=== PATIENT | female | born 1955 | race Caucasian/White ===

== ENCOUNTER 2018-01-28 05:36 | Day surgery (SDC) | payer OTHER ==
--- NOTE | 2018-01-16 06:26 | HP ---
PREOPERATIVE HISTORY AND PHYSICAL: DATE OF ADMISSION/SURGERY: 01/28/18 DATE OF OFFICE VISIT: 01/15/18 ATTENDING SURGEON: Sarika De La Cruz MD * (DICTATED BY NEHEMIAH DE LA O) CHIEF COMPLAINT: Left hip pain. HISTORY OF PRESENT ILLNESS: Rhoda is a 62-year-old female who presents to the clinic for left hip pain. She is referred to us by Dr. Lopez. She states that she has had pain in her hip for the past 4 years that has been worsening. She describes it as a deep aching pain in her groin that is worse with any movement. She has difficulty sleeping at night and has severe hip pain with sitting or standing too long. She received an ultrasound-guided injection and states that the Novocaine helped take away most of her pain, but when it wore off, the cortisone did not help. She also had an arthrogram and since the arthrogram, the hip pain has significantly increased. She is taking Aleve which is minimally helpful. She has done physical therapy without any relief. She does have a history of back and neck fusion. She denies any prior surgery to the left hip. She denies numbness, tingling, fever, chills, chest pain, shortness of breath, and is doing well otherwise. PAST MEDICAL HISTORY: Pancreatic cyst, fibromyalgia, hypertension, degenerative disk disease, and anxiety. PAST SURGICAL HISTORY: Back surgery x1, neck surgery x2, and eye surgery x3. The patient denies prior complications with anesthesia. MEDICATIONS: 1. Meloxicam 7.5 mg 1 by mouth twice daily. 2. Metoprolol 50 mg one half by mouth twice daily. 3. Estriol/testosterone 1 by mouth daily. 4. Esomeprazole 40 mg 1 by mouth every day. FAMILY HISTORY: Positive for heart disease. SOCIAL HISTORY: She is disabled. Former smoker. Reports occasional alcohol consumption. REVIEW OF SYSTEMS: A 14-point review of systems was reviewed with the patient. Positive for current complaint, otherwise negative. Denies fever, chills, chest pain, shortness of breath, history of DVT or PE, history of bleeding disorder. PHYSICAL EXAMINATION GENERAL: This is a 62-year-old well-developed, well-nourished female, in no acute distress. Alert and oriented x3. VITAL SIGNS: Height 63, weight 145. Blood pressure 120/78, respiratory rate 18. BMI 25.7. HEENT: Normocephalic, atraumatic. PERRLA. Throat clear. NECK: Supple. PULMONARY: Lungs clear to auscultation bilaterally. No wheezing, rhonchi, or rales. CARDIO: Regular rate and rhythm. S1 and S2. No murmurs, gallops, or rubs. No edema. ABDOMEN: Positive bowel sounds. Soft and nontender. MUSCULOSKELETAL: Left lower extremity: She walks with a severely antalgic gait. Hip is nontender to palpation. She has flexion of the hip to 45 degrees with pain. Pain with log roll and passive abduction. Significant pain with internal rotation and external rotation. Positive ADRIANA. Calves soft and nontender. +5/5 strength. Ankle dorsiflexion and plantarflexion. +2 DP pulse. Sensation intact to light touch distally. Right lower extremity, skin is intact. No warmth or erythema. Nontender to palpation. full range of motion. Neurovascularly intact. NEURO: Alert and oriented x3. Cranial nerves grossly intact. STUDIES: Multiple view x-rays and CT of the left hip revealed a cam deformity with mild osteoarthritis with joint space narrowing. MRI of the left hip revealed cam deformity, labral tear and bone marrow edema of the superolateral femoral head with joint effusion. 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 PLAN: Rhoda is a 62-year-old female who presents to the clinic for left hip pain due to femoroacetabular impingement and a labral tear. She has significant hip pain and may have an entrapped labral tear. She has failed conservative measures to include intra-articular injections and physical therapy. Therefore, Dr. De La Cruz recommended a left hip arthroscopic labral repair and osteoplasty. Postoperative recovery was discussed with the patient as well as risks of surgery to include risk of anesthesia, infection, bleeding, injury to blood vessels, nerves, surrounding structures, numbness, traction injury, and risk of DVT and PE. The patient has agreed to undergo the procedure. She is scheduled for a left hip arthroscopic labral repair and osteoplasty with Dr. De La Cruz on 01/28/18. Percocet will be used for postoperative pain management and naproxen to prevent heterotopic ossification. She will follow up 10 to 14 days postop and she will start therapy the day after surgery. NEHEMIAH DE LA O [id number]/[facility] #: [id number] [facility]ISION[facility]
[~2018-01-28 05:36] MED LIST: Buffered Lidocaine 0.9% SYRIN* 5 ML/SYR SYRINGE INTRADERM ONE; Ondansetron TAB* 4 MG PO ONE
[2018-01-28] MEDS ORDERED: DiMENhydriNATE IV* 50 MG/ML VIAL IV PUSH PRN (05:52)
[2018-01-28] MEDS ORDERED: Scopolamine 1.5 mg* PATCH TRANSDERM PRN (05:52)
[2018-01-28] MEDS ORDERED: PROCHLORPERAZINE INJ 5 MG/ML 2 ML VIAL IV PRN (05:52)
[2018-01-28] MEDS ORDERED: Dexamethasone TAB* 4 MG ONE (06:00)
[2018-01-28] MEDS ORDERED: Famotidine IV* 10 MG/ML 2 ML (20 mg) ONE (06:00)
[2018-01-28] MEDS ORDERED: Famotidine IV* 10 MG/ML 2 ML (20 mg) IV ONE (06:00)
[2018-01-28] MEDS ORDERED: Ondansetron ODT TAB* 4 MG ONE (06:00)
[2018-01-28] MEDS ORDERED: Dexamethasone TAB* 4 MG PO ONE (06:00)
[2018-01-28] MEDS ORDERED: ceFAZolin 2 GM PREMIX in ORs 2 GM/50 ML BAG IVPB ONE (06:01)
[2018-01-28] MEDS ORDERED: Buffered Lidocaine 0.9% SYRIN* 5 ML/SYR SYRINGE ONE (06:01)
[2018-01-28] MEDS ORDERED: KETAMINE HCL* 50 MG/ML 10 ML VIAL ONE (07:11)
[2018-01-28] MEDS ORDERED: Midazolam* 1 MG/ML 5 ML VIAL (5 MG) ONE (07:11)
[2018-01-28] MEDS ORDERED: fentaNYL* 50 MCG/ML 2 ML VIAL (100 MCG VIAL) ONE ×2 (07:11→09:32)
[2018-01-28] MEDS ORDERED: Atracurium* 10 MG/ML 10 ML VIAL ONE (07:11)
[2018-01-28] MEDS ORDERED: Ketorolac INJ* 30 MG/ML 1 ML VIAL ONE ×2 (07:14→08:35)
[2018-01-28] MEDS ORDERED: Ropivacaine* 2 MG/ML 20 ML VIAL (0.2%) ONE (07:15)
[2018-01-28] MEDS ORDERED: HYDROmorphone INJ1* 1 MG/ML SYRINGE ONE ×2 (07:59→09:32)
[2018-01-28] MEDS ORDERED: PROCHLORPERAZINE INJ 5 MG/ML 2 ML VIAL ONE (08:35)
[2018-01-28] MEDS ORDERED: Propofol* 10 MG/ML 20 ML BTL ONE (08:35)
[2018-01-28] MEDS ORDERED: Phenylephrine INJ* 10 MG/ML 1 ML VIAL (10 MG) ONE (08:35)
[2018-01-28] MEDS ORDERED: EPHEDrine (Pressors)* 50 MG/ML VIAL ONE (08:35)
[2018-01-28] MEDS ORDERED: Neostigmine Methylsulfate* 1 MG/ML 10 ML VIAL (1 mg/ml) ONE (08:57)
[2018-01-28] MEDS ORDERED: Glycopyrrolate IV* 0.2 MG/ML 1 ML VIAL ONE ×2 (08:57→09:13)
[2018-01-28] MEDS ORDERED: oxyCODONE/Acetamin 5/325 MG* TAB ONE ×2 (09:32→10:38)
[2018-01-28] MEDS: fentaNYL* 50 MCG/ML 2 ML VIAL (100 MCG VIAL) IV PRN ×3 (09:34→10:42)
[2018-01-28] MEDS: HYDROmorphone INJ1* 1 MG/ML SYRINGE IV PRN ×3 (09:36→10:43)
[2018-01-28] MEDS: oxyCODONE/Acetamin 5/325 MG* TAB PO PRN ×2 (09:37→10:42)
[2018-01-28] MEDS ORDERED: DiMENhydriNATE IV* 50 MG/ML VIAL ONE (10:39)
[2018-01-28] MEDS ORDERED: Scopolamine 1.5 mg* PATCH ONE (10:39)
[2018-01-28 11:01] VITALS: BP 137/76
--- NOTE | 2018-01-29 10:28 | OP ---
CC: PCP, Emerita Asencio MD * DATE OF OPERATION: 01/28/18 - [facility] DATE OF : 59 SURGEON: Sarika De La Cruz MD. ROVING WINDER: NEHEMIAH Lund. Tuber Machine Cutter was needed for the entirety of the case to help with positioning, retraction, and was utilized throughout all portions of the case. ANESTHESIOLOGIST: Dr. Landis. ANESTHESIA: General. PRE-OP DIAGNOSES: Left hip mild osteoarthritis with labral tear and loose body and pincer deformity. POST-OP DIAGNOSES: Left hip mild osteoarthritis with labral tear and loose body and pincer deformity. OPERATIVE PROCEDURE: 1. Left hip arthroscopy with labral debridement. 2. Removal of loose body x2 greater than 5 mm. 3. Cam osteoplasty. ESTIMATED BLOOD LOSS: Minimal. TRACTION TIME: 33 minutes. INDICATIONS: Rhoda Dominique is a 62-year-old female with significant left hip pain that began in 2013, but acutely got significantly worse. She initially responded to an injection in the past, then she had a second one. She had an arthrogram done for her hip, and since then, her pain is substantial, where she was unable to weightbear. She states the antiinflammatories failed. She has failed physical therapy. She is unable to walk. She has catching and locking of the hip. CT arthrogram demonstrated hip arthritis, but there was preserved joint space and her arthritis was not considered severe. She did have moderate cam and pincer deformity as well as labral tear. Risks and benefits of surgery were discussed at length and included, but are not limited to bleeding, infection, damage to nerves, vessels, surrounding structures, wound nonhealing, persistent pain, need for further surgery, scarring, stiffness, incomplete relief of symptoms, risk of anesthesia, as well as the risk of DVT and traction injuries, also heterotopic ossification. ARTHROSCOPIC FINDINGS: Traction provided good access to the joint. The cannula was replaced atraumatically and did not damage the labrum. There was evidence of a labral tear from the 10 o'clock to the 2 o'clock position with ossification that had subluxed into the joint. This is not deemed repairable. She did have small areas of grade 4 arthritis, with most of it grade 2 arthritis. She did have a loose body x2, about 5 mm, and the cartilage was delaminated where the typical wave sign would be. DESCRIPTION OF PROCEDURE: The patient was greeted in the preoperative area by the attending surgeon. The correct extremity was marked and consent was confirmed. The patient was brought back to the operating suite, where she was placed in supine position on the operating table. Then underwent general anesthesia with endotracheal intubation, after which she is appropriately positioned in the Leiva and Neph traction bed with large well padded perineal post. The nonoperative side was placed with the traction to balance the pelvis. The operative side was placed in dynamic leg zimmerman in gentle flexion, internal rotation, and neutral adduction. The left hip was then prepped and draped in usual sterile fashion beginning with chlorhexidine soap, scrub, and alcohol wipe. After a miniature surgical pause, gross traction was applied to the operative extremity. Under sterile condition, an 18-gauge spinal needle was introduced to break the acetabular seal. Once this was done, traction was applied to distract the hip by about 1.5 cm. This was appreciated using the C-arm traction. Traction was then taken down and the seal was broken. The hip was then finally prepped with the final prep of ChloraPrep. After appropriate surgical pause indicating site, side, procedure, and administration of antibiotics, traction was brought back up. First the anterior lateral peritrochanteric portal was accessed using a spinal needle, confirmed under fluoroscopy, then the portal was then made with 11 blade. Cannulas were then introduced atraumatically into the joint. Mid anterior portal was then made in similar fashion. Once the cannulas were placed, 70- degree scope was then used to confirm that none violated the labrum, although her labrum was subluxed into the joint. The pump was set to 40 mmHg for constant to stable pressure throughout the entirety of the case. At this point , attention was directed to the superior labrum which had torn. The Tioga blade was used to do capsulotomy, and the shaver and biters were then used to debride the labrum. There was evidence of ossification in the labrum. As this was being done, 2 loose bodies were identified. These were about 5 mm in length. There were numerous small chondral fragments as well that were removed. The remainder of the labrum was debrided back. Once the loose bodies were removed as well as the labrum, the traction was then taken down. Once this was confirmed arthroscopically as well as intraarticularly, attention was directed to the cam osteoplasty. Tioga blade was then used to tease the capsule. The cam was exposed. The electrocautery device was first used to melonie the provisions of the cam lesion. The preoperative templating was used as a guide for femoral neck osteoplasty. The bone quality was okay, but somewhat soft. There was a moderate size cam lesion. A 5-mm melvi was then used to do cam resection going superior to laterally, inferior to medially. This was used using a C-arm to try to remove as much to eliminate femoral sided impingement and cam lesion. Care was taken to prevent damage to external iliac vessels. At this point, meticulous hemostasis was obtained. Fluid was evacuated from the joint. Spinal needle was placed under arthroscopic visualization. Injectable Toradol and saline were placed into the joint. The wounds were copiously irrigated with sterile saline. Incisions were closed in layers with 2- 0 Vicryl and 3-0 nylon. Portals were injected with 0.25% Marcaine plain. Sterile dressings were applied as well as a Cryo/Cuff and MYA stocking. She was awoken from anesthesia and transferred to PACU in stable condition. POSTOPERATIVE PLAN: She will be partial weightbearing for 2 weeks with crutches , no hip flexion past 90 degrees. MYA stockings for 2 weeks. She will be discharged on pain medication as well as naproxen 500 mg p.o. b.i.d. for 30 days to prevent heterotopic ossification. DVT prophylaxis was considered, but deferred due to no previous personal or family history. I will see the patient back in 10 to 14 days and I will get repeat x-rays including a Alvarez and lateral of the hip. [id number]/[facility] #: [id number] [facility] CENTERBrian
[2018-01-31] MEDS ORDERED: Scopolamine PATCH Remove* 1 NOTE MISC PATCH OFF ONE (05:53)
== END 2018-01-28 11:17 | disposition home or self-care (01) ==
LOC: OR 05:36
PROVIDERS: ATTEND Orthopaedic Surgery
DX: M24.852 Other specific joint derangements of left hip, not elsewhere classified (principal); M25.852 Other specified joint disorders, left hip; M16.12 Unilateral primary osteoarthritis, left hip; M24.052 Loose body in left hip; I10 Essential (primary) hypertension; K21.9 Gastro-esophageal reflux disease without esophagitis
CPT/HCPCS: A9270-GY; J0690; J0780; J1170; J1240; J1885; J2250; J2704; J2710; J2795; J3010; J8540

== ENCOUNTER 2018-05-11 07:30 | Inpatient (IN) | payer OTHER ==
[2018-05-29] MEDS ORDERED: Buffered Lidocaine 1% SYRIN* 1 ML/SYRINGE INTRADERM ONE (13:29)
[2018-06-01] MEDS ORDERED: Lactated Ringers 1000 ML Bag* 1,000 ML IV SCH (06:00)
[2018-06-01] MEDS ORDERED: Dexamethasone IV* 4 MG/ML 1 ML (4 MG) IV SLOW PU ONE (06:00)
[2018-06-01] MEDS ORDERED: Acetaminophen IV 1GM/100ML * 1,000 MG/100 ML VIAL IVPB ONE (06:00)
[2018-06-01] MEDS ORDERED: celeCOXIB CAP* 200 MG PO ONE (06:00)
[2018-06-01] MEDS ORDERED: Gabapentin CAP(*) 300 MG PO ONE (06:00)
--- OUTSIDE RECORDS SUMMARY | 2018-06-01 07:28 | XMS REPORT | Continuity of Care Document ---
:1955 External Reference #:[id number] Author Name SURYA Carbajal Address [address] [place] [id number] Care Team Providers Name Role Phone Emerita Asencio MD Primary Care Physician Unavailable Payers Date Identification Numbers Payment Provider Subscriber Effective: 2016 Policy Number: [id number] [facility] Rhoda Dolan Expires: 2017 Group Number: [id number] [facility] PayID: [id number] [address] [place] [address] Effective: 2017 Policy Number: [id number] [facility] Rhoda Dolan Expires: 2018 Group Number: 100% [id number] [facility] PayID: [id number] [address] [place] [address] Advance Directives Description No Information Available Problems Date Description Provider Status Onset: 03/10/2018 Arthropathy of pelvis Sariak De La Cruz MD Active Onset: 03/10/2018 Articular cartilage disorder of Sarika De La Cruz MD Active the pelvic region and thigh Onset: 01/15/2018 Other specific joint derangements Sarika De La Cruz MD Active of left hip, not elsewhere classified Onset: 01/15/2018 Localized, primary osteoarthritis Sarika De La Cruz MD Active of the pelvic region and thigh Onset: 11/14/2017 Enthesopathy of hip region Juan Diego Flores M.D. Active Onset: 11/14/2017 Left side sciatica Juan Diego Flores M.D. Active Onset: 06/06/2015 Essential hypertension Dru Tate M.D., [facility], Active [facility] Onset: 06/06/2015 Chest pain Dru Tate M.D., [facility], Active [facility] Family History Date Family Member(s) Observation Comments General Coronary Artery Disease (CAD) 4/6 brothers and father with heart stents General OCD General Anxiety Father Back and Neck Problems Father Heart Disease Mother Hypertension Mother Cancer Siblings 6 Social History Type Date Description Comments Sex Unknown Marital Status 2 Times Lives With Occupation Disabled ETOH Use Denies alcohol use Tobacco Use Start: Unknown Patient has never smoked Recreational Drug Use Never Used Drugs Smoking Status Reviewed: 04/29/18 Patient has never smoked Exercise Type/Frequency Walks sporadically Allergies, Adverse Reactions, Alerts Date Description Reaction Status Severity Comments 06/06/2015 Morphine Active Rash 06/06/2015 Talwin Nx Active Rash 06/06/2015 Lorazepam Active Confusion 06/06/2015 Wellbutrin Active Hives 11/14/2017 Diclofenac red urine Active Medications Medication Date Status Form Strength Qnty SIG Indications Ordering Provider Gabapentin 04/09/ Active Capsules 300mg 30caps 1 by mouth M16.12 Juan Diego 2019 every night Sandra, at bedtime M.D. Metoprolol / Active Tablets 50mg 1/2 tab by Unknown Tartrate 0000 mouth twice a day(25mg) Estriol-Testos / Active Unknown terone 0000 Esomeprazole / Active Capsules 40mg 1 by mouth Unknown Magnesium 0000 DR every day Percocet 01/26/ Hx Tablets 5-325mg 30tabs 1 tabs by Sarika 2017 - mouth every , 03/10/ 4-6 hours 2019 as needed post op pain Naproxen 01/26/ Hx Tablets 500mg 60tabs 1 by mouth Sarika 2018 - twice a day Yaseen, 03/10/ x 30 days 2019 post op. do not take before surgery Meloxicam 01/09/ Hx Tablets 7.5mg 60tabs take 1 M25.452 Dirk 2017 - tablet by Jessica, 03/10/ mouth twice M.D. 2019 daily. Amlodipine / Hx Tablets 10mg 1/2 tab by Unknown Besylate 0000 - mouth every 11/03/ day 2018 Fentanyl / Hx Patches 100mcg/HR apply Unknown 0000 - 72HR 1patch 11/03/ topically 2018 every 72 hours Carisoprodol 00/ Hx Tablets 350mg 1 tab Unknown 0000 - tid/prn 2017 Oxycodone HCL 00/ Hx Tablets 5mg 1-2 by Unknown 0000 - mouth a 11/03/ day as 2018 needed Immunizations Description No Information Available Vital Signs Date Vital Result Comment 04/29/2018 10:54am Height 62.75 inches 5'2.75" Weight 127.25 lb Heart Rate 64 /min BP Systolic 120 mmHg BP Diastolic 76 mmHg Respiratory Rate 16 /min Pain Level 9 BMI (Body Mass Index) 22.7 kg/m2 04/09/2018 9:01am Height 63 inches 5'3" Weight 130.00 lb Heart Rate 76 /min BP Systolic Recheck 124 mmHg BP Diastolic Recheck 84 mmHg Respiratory Rate 16 /min Body Temperature 98.4 F BMI (Body Mass Index) 23.0 kg/m2 03/27/2018 8:10am Height 63 inches 5'3" Weight 137.00 lb BP Systolic 120 mmHg BP Diastolic 68 mmHg Respiratory Rate 18 /min Pain Level 10 BMI (Body Mass Index) 24.3 kg/m2 03/10/2018 3:32pm Height 63 inches 5'3" Weight 137.00 lb BP Systolic 120 mmHg BP Diastolic 70 mmHg Respiratory Rate 20 /min Pain Level 10 BMI (Body Mass Index) 24.3 kg/m2 02/10/2018 2:24pm Height 63 inches 5'3" Weight 137.00 lb Heart Rate 75 /min Body Temperature 97.1 F Pain Level 6 O2 % BldC Oximetry 97 % BMI (Body Mass Index) 24.3 kg/m2 01/15/2018 11:10am Height 63 inches 5'3" Weight 145.00 lb BP Systolic 128 mmHg BP Diastolic 78 mmHg Respiratory Rate 18 /min Pain Level 9 BMI (Body Mass Index) 25.7 kg/m2 01/09/2018 9:36am Height 63 inches 5'3" Weight 145.00 lb Heart Rate 76 /min BP Systolic Recheck 128 mmHg BP Diastolic Recheck 84 mmHg Respiratory Rate 16 /min Body Temperature 97.6 F BMI (Body Mass Index) 25.7 kg/m2 12/25/2017 10:27am Height 63 inches 5'3" Weight 147.00 lb Heart Rate 76 /min BP Systolic Recheck 126 mmHg BP Diastolic Recheck 84 mmHg Respiratory Rate 16 /min Body Temperature 97.9 F BMI (Body Mass Index) 26.0 kg/m2 11/14/2017 2:29pm Height 63 inches 5'3" Weight 152.00 lb Heart Rate 76 /min BP Systolic Recheck 134 mmHg BP Diastolic Recheck 84 mmHg Respiratory Rate 16 /min Body Temperature 97.8 F BMI (Body Mass Index) 26.9 kg/m2 06/06/2015 9:59am Height 63 inches 5'3" Weight 150.00 lb Heart Rate 60 /min BP Systolic 110 mmHg right arm reg cuff BP Diastolic 70 mmHg right arm reg cuff BP Systolic Sitting 110 mmHg left arm reg cuff BP Diastolic Sitting 70 mmHg left arm reg cuff BP Systolic Standing 108 mmHg left arm reg cuff BP Diastolic Standing 70 mmHg left arm reg cuff BMI (Body Mass Index) 26.6 kg/m2 Results Test Date Facility Test Result H/L Range Note Inr/Protime 04/29/2018 [facility] Inr 0.93 N 0.77-1.[address] [place] [address] [phone] Laboratory test 04/29/2018 [facility] Partial 31.0 seconds N 26.0-36.[address] [address] PTT [phone] CBC Auto Diff 04/29/2018 [facility] White Blood 8.9 10^3/uL N 3.5-10.[address] [place] [address] [phone] Red Blood Count 4.56 10^6/uL N 4.00-5.40 Hemoglobin 14.1 g/dL N 12.0-16.0 Hematocrit 42 % N 35-47 Mean Corpuscular Volume 92 fL N 80-97 Mean Corpuscular Hemoglobin 31 pg N 27-31 Mean Corpuscular HGB Conc 34 g/dL N 31-36 Red Cell Distribution Width 13 % N 10.5-15 Platelet Count 289 10^3/uL N 150-450 Mean Platelet Volume 8.6 fL N 7.4-10.4 Abs Neutrophils 5.0 10^3/uL N 1.5-7.7 Abs Lymphocytes 2.9 10^3/uL N 1.0-4.8 Abs Monocytes 0.8 10^3/uL N 0-0.8 Abs Eosinophils 0.2 10^3/uL N 0-0.6 Abs Basophils 0.1 10^3/uL N 0-0.2 Abs Nucleated RBC 0 10^3/uL Granulocyte % 56.3 % Lymphocyte % 32.1 % Monocyte % 8.8 % Eosinophil % 2.2 % Basophil % 0.6 % Nucleated Red Blood Cells % 0 Urinalysis Profile 04/29/2018 [facility] Urine Color Samantha [address] [place] [address] [phone] Urine Appearance Cloudy Urine Specific [place] 1.028 N 1.010-1.030 Urine pH 5.0 N 5-9 Urine Urobilinogen Negative Negative Urine Ketones Trace Abnormal Negative Urine Protein Negative Negative Urine Leukocytes Trace Abnormal Negative Urine Blood Negative Negative * * Abnormal Negative 3 Urine Nitrite Negative Negative Urine Bilirubin Negative Negative Urine Glucose Negative Negative Urine White Blood Cell Trace(0-5/hpf) Absent Urine Red Blood Cell 1+(3-5/hpf) Abnormal Absent Urine Bacteria Absent Absent Urine Squamous Epithelial Cell Present Abnormal Absent Comp Metabolic Panel 04/29/2018 [facility] Sodium 142 mmol/L N 135-145 [address] [place] [address] [phone] Potassium 4.1 mmol/L N 3.5-5.0 Chloride 106 mmol/L N 101-111 Co2 Carbon Dioxide 31 mmol/L N 22-32 Anion Gap 5 mmol/L N 2-11 Glucose 73 mg/dL N 70-100 Blood Urea Nitrogen 12 mg/dL N 6-24 Creatinine 0.60 mg/dL N 0.51-0.95 BUN/Creatinine Ratio 20.0 N 8-20 Calcium 9.5 mg/dL N 8.6-10.3 Total Protein 6.7 g/dL N 6.4-8.9 Albumin 4.2 g/dL N 3.2-5.2 Globulin 2.5 g/dL N 2-4 Albumin/Globulin Ratio 1.7 N 1-3 Total Bilirubin 0.40 mg/dL N 0.2-1.0 Alkaline Phosphatase 71 U/L N 34-104 Alt 10 U/L N 7-52 Ast 13 U/L N 13-39 Egfr Non- 102.0 >60 Egfr 123.4 >60 4 Type & Screen 04/29/2018 [facility] Patient Blood Type A Positive [address] [place] [address] [phone] Antibody Screen NEGATIVE Urine Culture And 04/29/2018 [facility] Urine Culture SEE RESULT [address] [place] [address] [phone] 1 AA 05/11 2 AA 05/11 3 *Ascorbic acid is present which may interfere with detection of blood. 4 Because ethnic data is not always readily available, this report includes an eGFR for both -Americans and non- Americans. The National Kidney Disease Education Program (NKDEP) does not endorse the use of the MDRD equation for patients that are not between the ages of 18 and 70, are , have extremes of body size, muscle mass, or nutritional status, or are non- or non-. According to the National Kidney Foundation, irrespective of diagnosis, the stage of the disease is based on the level of kidney function: Stage Description GFR(mL/min/1.73 m(2)) 1 Kidney damage with normal or decreased GFR 90 2 Kidney damage with mild decrease in GFR 60-89 3 Moderate decrease in GFR 30-59 4 Severe decrease in GFR 15-29 5 Kidney failure <15 (or dialysis) 5 SEE RESULT BELOW Name: RHODA DOLAN : [address]: Juan Diego Flores MD Acct: [id number] Unit: [id number] AGE: 62 Location: [facility] Re04/29/18 SEX: F Status: REG REF SPEC: [id number] MIRIAM: 04/29/18-1335 [facility] DR: Juan Diego Flores MD REQ: [id number] RECD: 04/29/18 STATUS: SUZANNE NORMAN DR: Emerita Asencio MD _ SOURCE: URINE SPDESC: ORDERED: Urine Culture COMMENTS: MARCY 05/11 QUERIES: Urine Source: Clean Catch Procedure Result Reported Site Urine Culture Final 04/30/18- 1236 ML No Growth (<1,000 CFU/mL) * ML - Main Lab . END OF REPORT DEPARTMENT OF PATHOLOGY, [address] [place] [address] Atilio Aleman M.D. Director [facility] # [id number] Procedures Date Code Description Status 01/28/2018 90936 Arthroscopy,Hip,W/Femoroplasty,Treatment Of Cam Lesion Completed 01/28/2018 33802 Arthroscopy,Hip,W/Femoroplasty,Treatment Of Cam Lesion Completed 01/28/2018 57972 Arthroscopy W/Chondroplasty Completed 01/28/2018 34013 Arthroscopy W/Chondroplasty Completed 01/28/2018 94832 Arthroscopy Hip W/Removal Body Completed 01/28/2018 62769 Arthroscopy Hip W/Removal Body Completed 07/05/2015 93181 Treadmill Interp/Report Only Completed 07/05/2015 19635 Stress Test Supervsn W/Out I/R Completed 06/30/2015 44594 Treadmill Interp/Report Only Completed 06/30/2015 23311 Stress Test Supervsn W/Out I/R Completed 06/06/2015 00182 EKG, Interpretation Only Completed Encounters Type Date Location Provider Dx Diagnosis Office Visit 04/09/2018 Orthopedic Juan Diego Flores, M16.12 Unilateral primary 9:00a [facility] AT M.DTone osteoarthritis, [place] left hip M54.32 Sciatica, left side Office Visit 01/15/2018 10:30a Orthopedic Sarika De La Cruz, M24.852 Oth specific joint [facility] left hip, [facility] M16.12 Unilateral primary osteoarthritis, left hip M25.852 Other specified joint disorders, left hip Office Visit 01/09/2018 9:30a Orthopedic Tone Lopez, M25.452 Effusion, left [facility] M.DTone hip AT [place] M16.12 Unilateral primary osteoarthritis, left hip M65.88 Other synovitis and tenosynovitis, other site Office Visit 12/25/2017 11:00a Orthopedic Juan Diego Flores M70.72 Other bursitis [facility] [employer] M.DTone of hip, left AT [place] hip M54.32 Sciatica, left side Office Visit 11/14/2017 3:00p Tatum Flores M54.32 Sciatica , left [facility] M.D. side AT [place] M70.72 Other bursitis of hip, left hip Office Visit 06/06/2015 9:45a Sea Tate, R07.9 Chest pain, Cardiology M.D., FACC, unspecified [facility]SC[facility] I10 Essential (primary) hypertension Plan of Treatment Future Appointment(s):05/26/2018 1:00 pm - Juan Diego Flores M.D. at [facility] AT [facility]05/11/2019 7:30 am - NEHEMIAH Leon at [facility].A.05/11/2018 7:30 am - Juan Diego Flores M.D. at [facility]..04/29/2018 - Kathy Newman RPA-CM16.12 Unilateral primary osteoarthritis, left hipFollow up:Follow up: 2 weeks post op suture removal and then 4 week f/u Sandra [place] office
--- OUTSIDE RECORDS SUMMARY | 2018-06-01 07:28 | XMS REPORT | Continuity of Care Document ---
:1955 External Reference #:[id number] Author Name Carmelita Mchugh Care Team Providers Name Role Phone Emerita Asencio MD Primary Care Physician Unavailable Payers Date Identification Numbers Payment Provider Subscriber Effective: 2016 Policy Number: [id number] [facility] Care Rhoda Dolan Expires: 2017 Group Number: [id number] PayID: [id number] [address] Effective: 2017 Policy Number: [id number] [facility] Care Rhoda Dolan Expires: 2018 Group Number: 100% [id number] PayID: [id number] [place] [address] Advance Directives Description No Information Available Problems Date Description Provider Status Onset: 03/10/2018 Arthropathy of pelvis Sarika De La Cruz MD Active Onset: 03/10/2018 [...] Onset: 06/06/2015 Essential hypertension Dru Tate M.D., [facility], Active [facility] Onset: 06/06/2015 Chest pain Dru Tate M.D., [facility], Active [facility] Family History Date Family Member(s) Observation Comments General Coronary Artery Disease (CAD) 4/6 brothers and father with heart stents General OCD General Anxiety Father Back and Neck Problems Father Heart Disease Mother Hypertension Mother Cancer Siblings 6 Social History Type Date Description Comments Sex Unknown Marital Status 2 Times Lives With Occupation Disabled ETOH Use Denies alcohol use Recreational Drug Use Never Used Drugs Tobacco Use Start: Unknown End: Patient is a former smoked as teenager Unknown smoker Smoking Status Reviewed: 05/21/18 Patient is a former smoked as teenager smoker Exercise Type/Frequency Walks sporadically Allergies, Adverse Reactions, Alerts Date Description Reaction Status Severity Comments 06/06/2015 Morphine Active Rash 06/06/2015 Talwin Nx Active Rash 06/06/2015 Lorazepam Active Confusion 06/06/2015 Wellbutrin Active Hives 11/14/2017 Diclofenac red urine Active Medications Medication Date Status Form Strength Qnty SIG Indications Ordering Provider Metoprolol / Active Tablets 25mg 1 tablet Unknown Tartrate 0000 bid Estriol-Testos / Active 0.5mg/0.5 Unknown terone 0000 mg gel, 1 gram gel vaginally nightly x 1-2 weeks than 2-3 times/week Esomeprazole / Active Capsules 40mg 1 by mouth Unknown Magnesium 0000 DR every day Ibuprofen / Active Tablets 800mg 1 by mouth Unknown 0000 three times a day as needed with food or milk Vitamin D3 / Active Chewtabs 1000Unit 1 by mouth Unknown Adult Gummies 0000 every day Vitamin B 12 / Active Lozenges 250mcg 1 t every Unknown 0000 day Gabapentin 04/09/ Hx Capsules 300mg 30caps 1 by mouth M16.12 Juan Diego 2018 - every night Sandra, 05/18/ at bedtime M.DTone 2019 Percocet 01/26/ Hx Tablets 5-325mg 30tabs 1 tabs by Sarika 2018 - mouth every Yaseen, 03/10/ 4-6 hours 2019 as needed post op pain Naproxen 01/26/ Hx Tablets 500mg 60tabs 1 by mouth Sarika 2018 - twice a day Yaseen, 03/10/ x 30 days 2019 post op. do not take before surgery Meloxicam 01/09/ Hx Tablets 7.5mg 60tabs take 1 M25.452 Dirk 2018 - tablet by Jessica, 03/10/ mouth twice M.D. 2019 daily. Amlodipine / Hx Tablets 10mg 1/2 tab by Unknown Besylate 0000 - mouth every day 2018 Fentanyl / Hx Patches 100mcg/HR apply Unknown 0000 - 72HR 1patch 11/03/ topically 2018 every 72 hours Carisoprodol / Hx Tablets 350mg 1 tab Unknown 0000 - tid/prn 2017 Oxycodone HCL / Hx Tablets 5mg 1-2 by Unknown 0000 - mouth a as 2018 needed Immunizations Description No Information Available Vital Signs Date Vital Result Comment 05/21/2018 10:37am Height 62.75 inches 5'2.75" Weight 125.00 lb Heart Rate 53 /min BP Systolic Sitting 118 mmHg right arm, sitting, regular cuff BP Diastolic Sitting 64 mmHg right arm, sitting, regular cuff BP Systolic Standing 112 mmHg right arm, standing, regular cuff BP Diastolic Standing 62 mmHg right arm, standing, regular cuff BP Systolic Lying Down 122 mmHg left arm, sitting, regular cuff BP Diastolic Lying Down 62 mmHg left arm, sitting, regular cuff Respiratory Rate 16 /min O2 % BldC Oximetry 99 % BMI (Body Mass Index) 22.3 kg/m2 04/29/2018 10:54am Height 62.75 inches 5'2.75" Weight [...] Test Result H/L Range Note Inr/Protime 04/29/2018 [facility] Inr 0.93 N 0.77-1.[address] [place] [address] [phone] Laboratory test 04/29/2018 [facility] Partial 31.0 seconds N 26.0-36.[address] [place] [address] PTT [phone] CBC Auto Diff 04/29/2018 [facility] White Blood 8.9 10^3/uL N 3.5-10.[address] [place] [address] [phone] Red Blood Count 4.56 10^6/uL N 4.00-5.40 [...] Blood Cells % 0 Urinalysis Profile 04/29/2018 [facility] Urine Color Samantha [address] [place] [address] [phone] Urine Appearance Cloudy Urine Specific Lorane 1.028 N 1.010-1.030 Urine pH 5.0 N [...] Present Abnormal Absent Comp Metabolic Panel 04/29/2018 [facility] Sodium 142 mmol/L N 135-[address] [place] [address] [phone] Potassium 4.1 mmol/L N 3.5-5.0 Chloride 106 [...] 123.4 >60 4 Type & Screen 04/29/2018 [facility] Patient Blood Type A Positive [address] [place] [address] [phone] Antibody Screen NEGATIVE Urine Culture And 04/29/2018 [facility] Urine Culture SEE RESULT [address] [place] [address] [phone] 1 AA 3 2 AA 05/11 3 *Ascorbic acid is [...] Attend Dr: Juan Diego Flores MD Acct: [id number] Unit: [id number] AGE: 62 Location: PAT Re04/29/18 SEX: F Status: REG REF SPEC: [id number] MIRIAM: 04/29/18-1336 [facility] [address]: Juan Diego Flores MD REQ: [id number] RECD: 04/29/18 STATUS: SUZANNE NORMAN DR: Emerita Asencio MD _ SOURCE: URINE SPDESC: ORDERED: Urine Culture COMMENTS: MARCY 05/11 QUERIES: Urine Source: Clean Catch Procedure Result Reported Site Urine Culture Final 04/30/18- 1236 ML No Growth (<1,000 CFU/mL) * ML - Main Lab . END OF REPORT DEPARTMENT OF PATHOLOGY, [address] [place] [address] Atilio Aleman M.D. Director [facility] # [id number] Procedures Date Code Description Status 05/21/2018 15555 EKG Tracing & Interpretation Completed 01/28/2018 28361 Arthroscopy,Hip,W/Femoroplasty,Treatment Of Cam Lesion Completed 01/28/2018 05732 Arthroscopy,Hip,W/Femoroplasty,Treatment Of Cam Lesion Completed 01/28/2018 38286 Arthroscopy W/Chondroplasty Completed 01/28/2018 95423 Arthroscopy W/Chondroplasty Completed 01/28/2018 05837 Arthroscopy Hip W/Removal Body Completed 01/28/2018 65572 Arthroscopy Hip W/Removal Body Completed 07/05/2015 45610 Treadmill Interp/Report Only Completed 07/05/2015 36724 Stress Test Supervsn W/Out I/R Completed 06/30/2015 75529 Treadmill Interp/Report Only Completed 06/30/2015 73531 Stress Test Supervsn W/Out I/R Completed 06/06/2015 66540 EKG, Interpretation Only Completed Encounters Type Date Location Provider Dx Diagnosis Office Visit 04/09/2018 Orthopedic Juan Diego Flores, M16.12 Unilateral primary 9:00a [facility] M.DTone osteoarthritis, [place] left hip M54.32 Sciatica, left side Office Visit 01/15/2018 10:30a Orthopedic Sarika De La Cruz, M24.852 Ot specific joint [facility] left hip, NEC M16.12 Unilateral primary osteoarthritis, left hip M25.852 Other specified joint disorders, left hip Office Visit 01/09/2018 9:30a Orthopedic Tone Lopez, M25.452 Effusion, left [facility] [place] M16.12 Unilateral primary osteoarthritis, left hip M65.88 Other synovitis and tenosynovitis, other site Office Visit 12/25/2017 11:00a Orthopedic Juan Diego Flores M70.72 Other bursitis [facility] of hip, left AT [place] hip M54.32 Sciatica, left side Office Visit 11/14/2017 3:00p Orthopedic Juan Diego Flores M54.32 Sciatica , left [facility] [place] M70.72 Other bursitis of hip, left hip Office Visit 06/06/2015 9:45a [place] Tate, R07.9 Chest pain, Cardiology MOsvaldo, FACC, unspecified [facility] I10 Essential (primary) hypertension Plan of Treatment Future Appointment(s):06/01/2018 11:30 am - Juan Diego Flores M.D. at [facility]05/21/2018 - Carlito Baez M.D.R00.2 ImvgeinceeclS97.810 Encounter for preprocedural cardiovascular examinationFollow up:As neededRecommendations:Cardiac status is stable for hip surgery
[2018-06-01] MEDS ORDERED: Acetaminophen IV 1GM/100ML * 100 ML ONE (07:49)
[2018-06-01] MEDS ORDERED: celeCOXIB CAP* 100 MG ONE (07:50)
[2018-06-01] MEDS ORDERED: Dexamethasone IV* 4 MG/ML 1 ML (4 MG) ONE (07:50)
[2018-06-01] MEDS ORDERED: Gabapentin CAP(*) 300 MG ONE (07:50)
[2018-06-01] MEDS ORDERED: Buffered Lidocaine 1% SYRIN* 1 ML/SYRINGE INTRADERM ONE (07:51)
[2018-06-01] MEDS ORDERED: ceFAZolin 2 GM in NS PREMIX(*) 2 GM/100 ML BAG IVPB ONE (07:51)
[2018-06-01] MEDS ORDERED: KETAMINE HCL* 50 MG/ML 10 ML VIAL ONE (09:43)
[2018-06-01] MEDS ORDERED: fentaNYL* 50 MCG/ML 2 ML VIAL (100 MCG VIAL) ONE ×2 (09:43→13:19)
[2018-06-01] MEDS ORDERED: Bupivacaine 0.5% SDV PF* 30ML VIAL ONE (09:43)
[2018-06-01] MEDS ORDERED: Ondansetron INJ* 2 MG/ML VIAL ONE (09:43)
[2018-06-01] MEDS ORDERED: Midazolam* 1 MG/ML 5 ML VIAL (5 MG) ONE ×2 (09:43→11:21)
[2018-06-01] MEDS ORDERED: Propofol* 10 MG/ML 20 ML BTL ONE (09:44)
[2018-06-01] MEDS ORDERED: ROPIVACAINE 5 MG/ML 30 ML BTL (0.5%) ONE (10:33)
[2018-06-01] MEDS ORDERED: Ropivacaine (OR use only) 2 MG/ML 10 ML ONE (10:33)
[2018-06-01] MEDS ORDERED: Bupivacaine 0.5% W/EPI SDV* 30 ML VIAL ONE ×2 (11:43→11:46)
[2018-06-01] MEDS ORDERED: Atropine 1MG/ML INJ* 1 ML VIAL ONE (11:54)
[2018-06-01] MEDS ORDERED: EPHEDrine (Pressors)* 50 MG/ML VIAL ONE (12:20)
[2018-06-01] MEDS ORDERED: Ondansetron INJ* 2 MG/ML VIAL IV PRN ×2 (12:44→13:12)
[2018-06-01] MEDS ORDERED: HYDROmorphone INJ1* 1 MG/ML SYRINGE IV PRN (12:44)
[2018-06-01] MEDS ORDERED: Bisacodyl SUPP* 10 MG SUPP PR PRN (13:12)
[2018-06-01] MEDS ORDERED: diPHENhydraMINE PO* 25 MG PO PRN (13:12)
[2018-06-01] MEDS ORDERED: diPHENhydraMINE IV* 50 MG/ML 1 ml VIAL (BENADRYL) IV PRN (13:12)
[2018-06-01] MEDS ORDERED: Ondansetron ODT TAB* 4 MG PO PRN (13:12)
[2018-06-01] MEDS ORDERED: Magnesium Hydroxide LIQ* 30 ML UDC PO PRN (13:12)
[2018-06-01] MEDS ORDERED: Cyclobenzaprine TAB* 10 MG PO PRN (13:12)
[2018-06-01] MEDS ORDERED: HYDROmorphone INJ* 0.5 MG/0.5 ML SYRINGE IV SLOW PU PRN (13:19)
[2018-06-01] MEDS: fentaNYL* 50 MCG/ML 2 ML VIAL (100 MCG VIAL) IV PRN ×2 (13:21→13:43)
[2018-06-01] MEDS ORDERED: oxyCODONE TAB* 5 MG TAB ONE (13:41)
[2018-06-01] MEDS: oxyCODONE TAB* 5 MG TAB PO PRN ×3 (13:42→23:25)
[2018-06-01] MEDS ORDERED: Acetaminophen TAB* 325 MG PO SCH (14:00)
[2018-06-01] MEDS ORDERED: traMADol TAB* 50 MG PO SCH (14:00)
[2018-06-01] MEDS: D5W 1/2 NS 1000 ML BAG* 1,000 ML IV SCH (14:30)
--- NOTE | 2018-06-01 15:59 | PN ---
Progress Note - Progress Note Date of Service: 06/01/18 Note: Pt seen at bedside POD 0. Her pain is well controlled. Denies CP, SOB, dizziness , nausea. DF/PF intact, DP2+, sensation intact to light touch distally. She will be on coumadin and heparin for DVT prophylaxis.
[2018-06-01] MEDS: traMADol TAB* 50 MG PO SCH ×2 (16:21→21:43)
[2018-06-01] MEDS ORDERED: Warfarin TAB(*) 4 MG PO ONE (17:00)
--- NOTE | 2018-06-01 17:14 | OP ---
DATE OF OPERATION: 06/01/18 - ROOM #348 DATE OF : 59 SURGEON: Juan Diego Flores MD PROJECT OFFICER: Albania Ramirez RPA ANESTHESIA: Spinal sedation. PRE-OP DIAGNOSIS: Osteoarthritis, left hip POST-OP DIAGNOSIS: Osteoarthritis, left hip. OPERATIVE PROCEDURE: Left total hip arthroplasty. INDICATIONS: Ms. Dominique is a 63-year-old female, who has been having troubles with left hip pain for some time. She had some very specific groin pain and did have a labral tear with a very specific cam effect. She did undergo a hip arthroscopy but has had not relief from that. She also has had progression of her osteoarthritic changes, which were clearly visible by x-ray. She also has significant sciatic symptoms down the left leg and had undergone a ultrasound- guided steroid injections which gave her excellent relief for about 2 weeks. I discussed with her that her groin pain did appear to be caused by the hip and that the total hip arthroplasty should work well to decrease her pain and improve her function. Risks of surgery such as infection, scar formation, stiffness, DVT, leg length discrepancy, instability, and hardware failure were some of the risks discussed. She had been declared medically optimized and wished to proceed. ESTIMATED BLOOD LOSS: 100 cc. COMPLICATIONS: None. HARDWARE: Karrie 9 M/L taper, -3 mm, 32-mm head, 52-mm cup, vitamin E, flat acetabular liner Continuum. DESCRIPTION OF PROCEDURE: The patient was brought to the OR and spinal anesthesia was introduced. Baumann catheter was placed. She was then rolled into the right lateral decubitus position and an axillary roll was placed. She reported that it felt good and she was nice and comfortable in that position. Left hip area was prepped and then draped. She did feel some of the cautery so the spinal was supplemented with 20 cc of 0.5% Marcaine with epinephrine. Small bleeders encountered were ligated using electrocautery. Incision was carried down to the fascia and fascia was sharply incised. Blunt dissection was carried out proximally and Charnley retractor was placed. Bursa was taken down using electrocautery, and I was able to come underneath the gluteus medius/ gluteus minimus with a Hohmann and nice exposure then of the piriformis and short external rotators were obtained. Using electrocautery, these were taken down from the posterior aspect to the greater trochanter. T-capsulotomy was made and small gush of clear yellow joint fluid was encountered. Hip was then easily dislocated and femoral neck was marked using the cutting guide. Reciprocating saw was then used to resect the femoral head and this was handed off. Anterior C retractor was placed anteriorly over the acetabulum and inferiorly broad Hohmann was then placed. Nice exposure of the acetabulum was obtained. She had a large redundant labrum and this was sharply taken down using a Oseas blade. Beginning with a 44 reamer, she was progressively reamed and deepened a little bit. I had good bleeding bone and the cup was then impacted into place. Two screws were placed and nice bite was obtained with both screws. Flat trial liner was placed and attention was turned to the proximal femur. Box osteotome was used to open the femoral canal and the canal finder was easily passed. Beginning with a 4 broach, she was progressively broached until I reached a 9. This correlated well with preoperative templating. She seemed to have a nice solid fit with a 9 and she was trialed with a 0, 32-mm head. She seemed just a little bit long but had excellent stability. She could easily be extended and externally rotated and then the hip hyperflexed to 135 degrees. At 90 degrees she could be internally rotated and only started to lever out at 60. In full adduction, she started to lever out at about 45 degrees and was out at 60. Hip was left out and coming back, she was trialed with a minus head and her leg length appeared just about perfect and she had the same wonderful stability and motion. Trial instrumentation was removed and a flat vitamin E impregnated liner was placed into the acetabulum. The 9 broach was still solid and a 9 M/L taper was impacted into place. She was again trialed with a minus head and had the same wonderful length motion and stability. Minus 3-mm head was then impacted into place. Hip was grossly pulse lavaged. Capsule and piriformis were repaired together to the posterior aspect of the greater trochanter. The hip was again pulse lavaged and the fascia was repaired using interrupted #1 Vicryl sutures. Pulse lavage was finished and then the subcutaneous tissues were approximated using 2-0 Vicryl. Skin was closed using sherine. Sterile dressing and abduction pillow were applied in the OR. The patient was rolled on to the hospital bed and was stable on transfer to the recovery room. [id number]/[facility] #: [id number] [place]
[2018-06-01] MEDS: ceFAZolin 1 GM ADVAN(*) 1 GM in NS 0.9% 50 ML* 50 ML IVPB SCH (19:29)
--- NOTE | 2018-06-01 19:32 | CONS ---
CONSULTATION REPORT: DATE OF CONSULT: 06/01/18 SERVICE REQUESTING CONSULT: Orthopedic Surgery. REASON FOR CONSULT: Medical co-management. SURGERY: Postop left total hip replacement. HISTORY OF PRESENT ILLNESS: This is a 63-year-old female, past medical history includes hypertension, fibromyalgia, and anxiety, failed conservative therapy for a left hip osteoarthritis, status post uneventful left total hip replacement with Dr. Flores today. Being consulted to deliver postoperative co -management therapy and adjust medications as necessary for high blood pressure. When seen this patient post recovery on the third floor, her pain was well controlled. She had no chest pain, shortness of breath, nausea, vomiting, or lightheadedness. Her appetite had returned at her baseline. She was generally active at home, likes to clean the house, cook, but was very limited by pain in her hip. She has no complaints at this time. PAST MEDICAL HISTORY: Includes hypertension, fibromyalgia, anxiety, GERD, LVH per outpatient notes, right eye globe prosthesis, 2 back surgeries, 2 neck surgeries, and the surgery on her right great toe. MEDICATIONS: Home medications reviewed with the patient include: 1. Metoprolol tartrate 25 mg twice daily. 2. Meloxicam 7.5 mg twice daily. 3. Esomeprazole 40 mg in the morning. ALLERGIES: Include BUPROPION, LORAZEPAM, NALOXONE, PENTAZOCINE, MORPHINE, DICLOFENAC, and CATGUT STITCHES. FAMILY HISTORY: CAD in her father and mother had hypertension. SOCIAL HISTORY: She is disabled. She smoked as a teenager, never significantly. She drinks 2 screwdrivers per week at the most. No illicit's. REVIEW OF SYSTEMS: As per HPI, all other systems negative. PHYSICAL EXAM: Vitals: In the hospital 132/69, heart rate 69, 100% on room air , respiratory rate 16, T-max is 97.7. LABORATORY DATA: Labs reviewed: No labs reviewed. ASSESSMENT AND PLAN: A 63-year-old female relatively healthy prior to her surgery except for limiting pain from osteoarthritis with uneventful operative course. I agree with continuation of metoprolol for her high blood pressure. She is relatively well controlled, has good lung function, good METs prior to presentation, and was optimized to the best of her nature prior to the procedure. I have discontinued Mobic while she is receiving DVT prophylaxis with Coumadin to prevent any adverse bleeding outcomes. Otherwise, care as directed by primary team. We will remain available to your service as your needs arise. Please do not hesitate to call with questions or concerns at [phone]. [id number]/[facility] #: [id number] LOUIS
[2018-06-01] MEDS ORDERED: CMC:Meloxicam(NF) 7.5 MG TAB PO SCH (21:00)
[2018-06-01] MEDS: Metoprolol Tartrate TAB* 25 MG PO SCH (21:43)
[2018-06-01] MEDS: Docusate CAP* 100 MG PO SCH (21:43)
[2018-06-01] MEDS: Acetaminophen TAB* 325 MG PO SCH (21:43)
[2018-06-01] MEDS: Magnesium Hydroxide LIQ* 30 ML UDC PO SCH (21:47)
[2018-06-01] MEDS: HYDROmorphone INJ1* 1 MG/ML SYRINGE IV SLOW PU PRN (23:24)
[2018-06-02] MEDS ORDERED: Cyclobenzaprine TAB* 10 MG PO PRN (00:51)
[2018-06-02] MEDS: D5W 1/2 NS 1000 ML BAG* 1,000 ML IV SCH (00:52)
[2018-06-02] MEDS: ceFAZolin 1 GM ADVAN(*) 1 GM in NS 0.9% 50 ML* 50 ML IVPB SCH ×2 (03:29→12:11)
[2018-06-02] MEDS: traMADol TAB* 50 MG PO SCH ×2 (03:43→10:21)
[2018-06-02] MEDS: oxyCODONE TAB* 5 MG TAB PO PRN ×5 (03:43→16:40)
[2018-06-02] MEDS: Acetaminophen TAB* 325 MG PO SCH ×2 (05:26→12:11)
[2018-06-02] MEDS: HYDROmorphone INJ1* 1 MG/ML SYRINGE IV SLOW PU PRN (05:27)
[2018-06-02 05:49] LABS: Hematocrit 30 % (33-41); Hemoglobin 10.2 g/dL (12.0-16.0); Mean Platelet Volume 8.6 fL (7.4-10.4); Platelet Count 218 10^3/uL (150-450)
[2018-06-02 06:03] LABS: INR 1.1 (0.77-1.02)
[2018-06-02 06:09] LABS: BUN/Creatinine Ratio 15.5 (8-20); Calcium 8.6 mg/dL (8.6-10.3); EGFR African American 127.9 (>60); EGFR Non-African American 105.7 (>60); Potassium 3.5 mmol/L (3.5-5.0)
[2018-06-02] MEDS: Docusate CAP* 100 MG PO SCH (08:02)
[2018-06-02] MEDS: Heparin VIAL(*) 5000 UNITS/ML VIAL (FIVE THOUSAND) SUBCUT SCH ×2 (08:03→14:41)
[2018-06-02] MEDS: Magnesium Hydroxide LIQ* 30 ML UDC PO SCH (08:03)
--- NOTE | 2018-06-02 08:17 | PN ---
Progress Note - Progress Note Date of Service: 06/02/18 SOAP: Subjective: []Pt seen at bedside. She feels tired and sore today, she has utilized oxycodone , tramadol, Dilaudid, cyclobenzaprine for pain. Denies CP, SOB, dizziness, nausea, confusion, sedation. Sensation of operative extremity has returned entirely. Objective: []General: Well appearing, NAD LLE: Dressing CDI. Thigh is soft. DF/PF intact, DP2+, sensation intact to light touch distally. Calves supple and nontender without erythema, edema or palpable cords Assessment: []POD 1 sp LTH arthroplasty Plan: []WBAT PT/OT Posterior hip precautions Coumadin w Heparin bridge Pt desires DC home today. If pain well controlled with PO meds Will eval readiness after she has participates with PT Toradol IV 15 mg Q 6 prn pain Vital Signs Temp 98.8 F 06/02/18 07:47 Pulse 64 06/02/18 07:47 Resp 16 06/02/18 08:03 BP 145/88 06/02/18 07:47 Pulse Ox 100 06/02/18 07:47 Intake & Output 06/01/18 06/02/18 06/02/18 18:59 06:59 18:59 Intake Total 1860 2740 747 Output Total 600 2450 400 Balance 1260 290 347 Weight 124 lb Intake: IV Fluids 1800 990 692 D5W 1/2 NS 990 692 LR 1700 NS 100ML, Cefazolin 2G 100 IVPB 55 ABX - CEFAZOLIN 55 Oral 60 1750 Output: Urine 400 Baumann 600 2450 Laboratory Last Values Hgb 10.2 g/dL (12.0-16.0) L 06/02/18 05:37 Hct 30 % (33-41) L 06/02/18 05:37 Plt Count 218 10^3/uL (150-450) 06/02/18 05:37 MPV 8.6 fL (7.4-10.4) 06/02/18 05:37 INR (Anticoag Therapy) 1.10 (0.77-1.02) H 06/02/18 05:37 Sodium 139 mmol/L (135-145) 06/02/18 05:37 Potassium 3.5 mmol/L (3.5-5.0) 06/02/18 05:37 Chloride 106 mmol/L (101-111) 06/02/18 05:37 Carbon Dioxide 29 mmol/L (22-32) 06/02/18 05:37 Anion Gap 4 mmol/L (2-11) 06/02/18 05:37 BUN 9 mg/dL (6-24) 06/02/18 05:37 Creatinine 0.58 mg/dL (0.51-0.95) 06/02/18 05:37 Est GFR ( Amer) 127.9 (>60) 06/02/18 05:37 Est GFR (Non-Af Amer) 105.7 (>60) 06/02/18 05:37 BUN/Creatinine Ratio 15.5 (8-20) 06/02/18 05:37 Glucose 135 mg/dL (70-100) H 06/02/18 05:37 Calcium 8.6 mg/dL (8.6-10.3) 06/02/18 05:37
[2018-06-02] MEDS: Metoprolol Tartrate TAB* 25 MG PO SCH (08:39)
[2018-06-02] MEDS: Ketorolac INJ* 15 MG/ML 1 ML VIAL IV PUSH PRN ×2 (08:41→14:41)
[2018-06-02] MEDS ORDERED: Pantoprazole TAB * 40 MG TAB PO SCH (09:00)
--- NOTE | 2018-06-02 10:07 | DS ---
Orthopedic Discharge Summary - Discharge Summary Date of Admission:06/01/18 Date of Discharge: 06/02/18 Date of Surgery:06/01/18 Attending Orthopedic Provider: Dr Flores Pre-operative Diagnosis: Left hip osteoarthritis Operative Procedure: Left total hip arthroplasty History: BRISEIDA DOLAN is a 63 year old F with years of increasingly severe left hip pain. Patient has failed conservative management and has elected to undergo a left total hip replacement Hospital Course: BRISEIDA was admitted to [facility] on 06/01/18. Patient underwent a left total hip arthroplasty without complication followed by a brief recovery in PACU and transfer to the Short Stay Surgical Unit in stable condition. Our hospitalist service, physical therapy and occupational therapy also participated in this patients care. Post-op day 1: patient was alert and in no acute distress. Dressing was clean, dry and intact. Operative extremity dorsiflexion and plantarflexion intact, sensation intact to light touch distally, DP2+. Prior to discharge dressing was changed, incision was clean, dry and intact. Patient was deemed to be medically and orthopedically stable for discharge home. Physical therapy goals were met. Home Medications Medication Instructions Recorded Confirmed Type Metoprolol Tartrate TAB* 25 mg PO BID 07/05/15 06/01/18 History [Lopressor TAB*] Esomeprazole(NF) [Nexium(NF)] 40 mg PO QAM 04/29/18 06/01/18 History Meloxicam Hold until done with coumadin 04/29/18 06/01/18 History Acetaminophen TAB* [Tylenol TAB*] 975 mg PO 0430,1230,2030 PRN tab 06/02/18 Rx Aspirin TAB* [Aspirin 325 MG TAB*] 325 mg PO DAILY until INR is 2-3 06/02/18 Rx Docusate CAP* [Colace Cap*] 100 mg PO BID #90 cap 06/02/18 Rx Warfarin TAB(*) [Coumadin TAB(*)] 2 mg tabs, 1-3 tabs PO DAILY 30 Days #90 tab 06/02/18 Rx oxyCODONE TAB* [Roxycodone TAB 5 5 mg PO Q4H PRN tab MDD 10 06/02/18 Rx mg*] oxyCODONE TAB* [Roxycodone TAB 5 10 mg PO Q4H PRN #20 tab MDD 4 06/02/18 Rx mg*] traMADol TAB* [Ultram*] 50 mg PO 0400,1000,1600,2200 PRN 06/02/18 Rx #56 tab MDD 8 Discharge Instructions following Orthopedic Surgery: Activity: * Weight Bearing as tolerated * Continue physical therapy and occupational therapy exercises as shown Hip replacements: Continue Hip Precautions- do not cross legs or bend greater than 90 degrees/squat Wound care: * OK to shower on post-op day 3, no bathing, swimming, or submerging wound. * Use gentle soap, pat dry. Cover with gauze, NAEEM wrap or tape. * Visiting home nurse to do wound checks. Call Orthopedic office for: * Increased drainage * Redness * Increased pain * Fever Go to ER with shortness of breath or chest pain. Diet: * Regular diet * Increase fluids and fiber to prevent constipation. * Continue to use stool softeners, call office if no bowel motion within 48 hours. Start physical therapy right away at [facility] See Home Medication List in your packet for medications that you should take after discharge. DVT Prophylaxis : coumadin will thin your blood to help prevent blood clots. Please be aware it increases bleeding tendency Coumadin Dosing: * Please note that you have been given 2 mg tablets. * Attend outpatient lab to draw blood work for INR on Friday and . * You will be provided with dose instructions on Mondays and . * If you do not receive dosing instruction on dosing, please call our office right away. Please melonie dosing instructions on your calendar as they are provided to you. * Dosin mg 4/2 and 4 mg 4/3. recheck 06/04 for further dosing instructions. Call orthopedic office if you do not receive dosing instructions. You will also need to take Aspirin 325mg once a day until INR is between 2-3. Orthopedic office to instruct when to stop aspirin Pain Control: tramadol 50 mg tabs 1-2 tabs every 6 hours as needed for pain, max of 8 tabs per day. For severe breakthrough pain you can alternate in oxycodone 5 mg tabs 1 -2 tabs by mouth every 4-6 hours as needed for pain. Maximum of 4 tabs per day. Hold both tramadol and oxycodone for sedation. Wean off of oxycodone first then wean off of tramadol as pain allows. You may also use over the counter tylenol. Maximum daily dose of Tylenol is 4000 mg from all sources. Antibiotics are required prior to any dental work. FOLLOW UP: Follow up with Dr. Atkins] in 4 weeks, call for appointment, call sooner with concerns Please call our office with any questions or concerns ([phone])
[2018-06-02 16:36] VITALS: BP 114/58
[2018-06-02] MEDS ORDERED: Warfarin TAB(*) 6 MG PO ONE (17:00)
== END 2018-06-02 17:28 | disposition home or self-care (01) | DRG 301 ==
LOC: AA 06-01 07:25 → SSU 06-01 13:12
PROVIDERS: ADMIT Orthopaedic Surgery; ATTEND Orthopaedic Surgery
PROC: 0SRB02A Replacement of Left Hip Joint with Metal on Polyethylene Synthetic Substitute, Uncemented, Open Approach (ICD-10-PCS; principal; 2018-06-01 10:00)
DX: M16.12 Unilateral primary osteoarthritis, left hip (principal); I10 Essential (primary) hypertension; M76.9 Unspecified enthesopathy, lower limb, excluding foot; M54.32 Sciatica, left side; M79.7 Fibromyalgia; F41.9 Anxiety disorder, unspecified; K21.9 Gastro-esophageal reflux disease without esophagitis; Z79.82 Long term (current) use of aspirin; Z79.01 Long term (current) use of anticoagulants; Z88.8 Allergy status to other drugs, medicaments and biological substances; Z88.5 Allergy status to narcotic agent; Z86.010 Personal history of colon polyps; Z82.49 Family history of ischemic heart disease and other diseases of the circulatory system; Z80.9 Family history of malignant neoplasm, unspecified; Z81.8 Family history of other mental and behavioral disorders; Z87.891 Personal history of nicotine dependence; Z97.0 Presence of artificial eye
CPT/HCPCS: 36415; 72170; 80048; 85014; 85018; 85049; 85610; A9270-GY; C1713; C1776; J0461; J0690; J1100; J1170; J1644; J1885; J2250; J2405; J2704; J2795; J3010